=== PATIENT | male | born 1990 | race Caucasian/White ===

== ENCOUNTER 2022-04-22 15:04 | Emergency (ER) | payer OTHER, SELFPAY ==
[2022-04-22] VITALS (7 sets, daily range): BP systolic 140–143; BP diastolic 83–95; PULSE 72–88; RESP 18–22; TEMP 36.9; O2SAT 96–99; BMI 26.5
--- NOTE | 2022-04-22 14:57 | ECG_ITS ---
APPROVED REPORT Exam: Resting ECG HR:74 bpm ECG Measurements Heart Rate 74 AXES NM 144 P 64 QRSd 90 QRS 81 QT 348 T 9 QTc 376 Conclusion SINUS RHYTHM MODERATE ST DEPRESSION [0.05+ mV ST DEPRESSION] ABNORMAL ECG UNCONFIRMED REPORT Electronically signed by : Xavier Gutierrez MD 04/23/2022 10:31:10
--- NOTE | 2022-04-22 15:06 | [facility].EDGENADL ---
ED Disposition Clinical Impression: COVID-19 virus infection, Atypical chest pain Disposition: Home, Self-Care Condition on Discharge: Good Instructions: DI for Atypical Chest Pain, DI for COVID-19 (Suspected or Confirmed ) Additional Instructions: Rest, drink plenty of fluids. Tylenol or Ibuprofen for fever and/or aches and pains. Monitor your symptoms. IF YOU HAVE AN EMERGENCY WARNING SIGN (INCLUDING TROUBLE BREATHING), SEEK EMERGENCY MEDICAL CARE IMMEDIATELY. COVID-19 Isolation: People with COVID-19 should isolate for 5 days. Then if they are asymptomatic (no symptoms) or their symptoms are resolving (without fever for 24 hours), follow that by 5 days of wearing a mask when around others to minimize the risk of infecting people you encounter. If you test positive for COVID-19 and never develop symptoms, day 0 is the day of your positive viral test (based on the date you were tested) and day 1 is the first full day after your positive test. If you develop symptoms after testing positive, your 5-day isolation period must start over. Day 0 is your first day of symptoms. Day 1 is the first full day after your symptoms developed. What to do: Stay in a separate room from other household members, if possible. Use a separate bathroom, if possible. Avoid contact with other members of the household and pets. Don?t share personal household items, like cups, towels, and utensils. Wear a mask when around other people if able. Referrals: Jerman Basilio MD [Primary Care Provider] - - Critical Care Critical Care Time: No Attestation: On , the high probability of a clinically significant, sudden or life threatening deterioration of the following system(s) required my full and direct attention, intervention and personal management. The time I documented below is in addition to time spent performing reported procedures but includes the following listed in this critical care notation. Medical Decision Making - Janes Inquiry Pt receiving controlled substance: No Vital Signs: 04/22/22 15:04 04/22/22 15:30 04/22/22 15:33 Temperature 98.4 F Temperature Source Oral Pulse Rate 82 74 Pulse Rate [Left Radial] 88 Respiratory Rate 20 22 20 Blood Pressure 143/86 H 143/86 H Blood Pressure [Right Arm] 143/95 H Blood Pressure Mean 100 Blood Pressure Mean [Right Arm] 111 Blood Pressure Source Automatic Cuff Blood Pressure Source [Right Arm] Automatic Cuff Blood Pressure Position Sitting Blood Pressure Position [Right Arm] Sitting 02 Sat by Pulse Oximetry 97 96 97 Oxygen Delivery Method Room Air Room Air 04/22/22 16:00 04/22/22 16:30 04/22/22 16:52 Temperature Temperature Source Pulse Rate 82 78 72 Pulse Rate [Left Radial] Respiratory Rate 18 20 19 Blood Pressure 140/83 141/86 H 141/86 H Blood Pressure [Right Arm] Blood Pressure Mean 101 100 Blood Pressure Mean [Right Arm] Blood Pressure Source Automatic Cuff Blood Pressure Source [Right Arm] Blood Pressure Position Sitting Blood Pressure Position [Right Arm] 02 Sat by Pulse Oximetry 96 97 99 Oxygen Delivery Method Room Air 04/22/22 16:54 Temperature 98.4 F Temperature Source Pulse Rate 72 Pulse Rate [Left Radial] Respiratory Rate 19 Blood Pressure 141/86 H Blood Pressure [Right Arm] Blood Pressure Mean Blood Pressure Mean [Right Arm] Blood Pressure Source Blood Pressure Source [Right Arm] Blood Pressure Position Blood Pressure Position [Right Arm] 02 Sat by Pulse Oximetry Oxygen Delivery Method Room Air - Lab Data Lab Results 04/22/22 15:06: WBC 4.1 L, RBC 4.50 L, Hgb 14.1, Hct 38.8 L, MCV 86.3, MCH 31.3 H, MCHC 36.2 H, RDW 13.2, Plt Count 186, MPV 7.3 L, Neut % (Auto) 69.3, Lymph % (Auto) 16.7, [place] % (Auto) 9.0, Eos % (Auto) 1.3, Baso % (Auto) 3.7 H, Neut # (Auto) 2.8, Lymph # (Auto) 0.7, [place] # (Auto) 0.4, Eos # (Auto) 0.1, Baso # (Auto) 0.2 04/22/22 15:06: Sodium 140, Potassium
--- NOTE | 2022-04-22 15:09 | PC.NURSE ---
ED MD at
--- NOTE | 2022-04-22 15:09 | XR_ITS ---
FINAL REPORT CLINICAL HISTORY: chest pain FINDINGS: PA and lateral views of the chest were obtained. There is no prior exam for comparison. The cardiac and mediastinal silhouettes are within normal limits. The lungs are clear. There is no pleural effusion or pneumothorax. No acute osseous abnormality is identified. IMPRESSION: No radiographic evidence of acute cardiac or pulmonary disease. Reviewed, Interpreted and Dictated by Gilma Esqueda MD Transcribed by Sadiq Ziegler Authenticated by Gilma Esqueda MD on 04/22/2022 04:52:52 PM [facility]
--- NOTE | 2022-04-22 15:16 | PC.NURSE ---
patient to radiology with air analysis engineering technician by wheelchair
[2022-04-22 15:27] LABS: Influenza A, PCR Not Detected (NotDetected); Influenza B, PCR Not Detected (NotDetected)
[2022-04-22 15:31] LABS: Basophils # 0.2 K/mm3 (0-0.2); Basophils % 3.7 % (0.1-2.0); Chloride 105 mmol/L (98-107); Eosinophils # 0.1 K/mm3 (0.0-0.4); Eosinophils % 1.3 % (0.1-12.0); Hematocrit 38.8 % (42.0-52.0); Hemoglobin 14.1 g/dL (14.1-18.0); Lymphocytes # 0.7 K/mm3 (0.7-4.5); Lymphocytes % 16.7 % (10-50); Mean Corpuscular HGB Conc 36.2 g/dL (31.8-35.4); Mean Corpuscular Hemoglobin 31.3 pg (27.0-31.2); Mean Corpuscular Volume 86.3 fl (80-94); Mean Platelet Volume 7.3 fl (7.4-10.4); Monocytes # 0.4 K/mm3 (0.1-1.0); Neutrophils # 2.8 K/mm3 (1.8-7.8); Neutrophils % 69.3 % (37.0-80.0); Platelet Count 186 K/mm3 (142-424); Red Cell Distribution Width 13.2 % (11.5-17.5); White Blood Count 4.1 K/mm3 (4.8-10.8)
[2022-04-22 15:32] LABS: Potassium 3.7 mmoL/L (3.5-5.1); Sodium 140 mmol/L (136-145)
[2022-04-22 15:34] LABS: Blood Urea Nitrogen 9 mg/dl (9-20); Creatinine Clearance Estimated 137 mL/min (50-200); Estimated Glomerular Filt Rate 97 ml/min (>60); GFR (African American) 117 ML/MIN (>60)
[2022-04-22 15:35] LABS: Anion Gap 11.7 mEq/L (5-15); Calcium 9.3 mg/dl (8.4-10.2); Carbon Dioxide 27 mmol/L (22.0-30.0); Glucose 102 mg/dl (74-100)
[2022-04-22 15:49] LABS: Troponin I < 0.01 ng/ml (0.00-0.034)
[2022-04-22 16:05] LABS: Coronavirus 19, PCR Detected (NotDetected)
--- NOTE | 2022-04-22 16:50 | PC.NURSE ---
Carolina B, RN at discussing discharge instructions with patient
== END 2022-04-22 16:55 | disposition home or self-care (01) ==
PROVIDERS: Emergency Provider Emergency Medicine; PCP Pediatrics
DX: U07.1 COVID-19 (principal); R07.89 Other chest pain; R42 Dizziness and giddiness; R06.02 Shortness of breath
CPT/HCPCS: 71046; 80048; 84484; 85025; 93005; 99285; C9803; U0003; U0005